=== PATIENT | male | born 1990 | race African-American/Black ===

== ENCOUNTER 2018-10-26 08:37 | Emergency (ER) | payer OTHER ==
[2018-10-26 08:41] VITALS: BP 141/83; PULSE 89; RESP 18; TEMP 98
--- NOTE | 2018-10-26 08:51 | ED ---
General Adult HPI - General Chief complaint: Extremity Injury, Upper Stated complaint: Wrist/arm injury Time Seen by Provider: 10/26/18 08:44 Source: patient, RN notes reviewed Mode of arrival: ambulatory Limitations: no limitations - History of Present Illness Initial comments: Patient is a 28-year-old male presented to the emergency room today with a chief complaint of injury to the left forearm that occurred yesterday. He does admit that he was walking up some stairs when he slipped on the ice falling to the side. Does admit to abrasion over the left forearm. States he has tenderness is worried that it could be broken. Patient states tetanus is up-to- date. He states was no head injury no loss consciousness. States pain is worse with certain movements of the left forearm. He denies any other complaints. Patient denies any recent fever, chills, shortness of breath, chest pain, back pain, abdominal pain, nausea or vomiting, numbness or tingling, headaches or visual changes, or any other complaints. - Related Data Home Medications Medication Instructions Recorded Confirmed Naproxen Sodium [Aleve] 220 mg PO DAILY PRN 10/26/18 10/26/18 Allergies Allergy/AdvReac Type Severity Reaction Status Date / Time No Known Allergies Allergy Verified 10/26/18 09:11 Review of Systems ROS Statement: Those systems with pertinent positive or pertinent negative responses have been documented in the HPI. ROS Other: All systems not noted in ROS Statement are negative. Past Medical History Past Medical History: No Reported History History of Any Multi-Drug Resistant Organisms: None Reported Past Surgical History: No Surgical Hx Reported Past Anesthesia/Blood Transfusion Reactions: No Reported Reaction Additional Past Anesthesia/Blood Transfusion Reaction / Comment(s): states mother has PONV Past Psychological History: No Psychological Hx Reported Smoking Status: Current every day smoker Past Alcohol Use History: Occasional Past Drug Use History: None Reported General Exam - General Exam Comments Initial Comments: General: The patient is awake and alert, in no distress, and does not appear acutely ill. Neck: The neck is supple, there is no tenderness or JVD. Musculoskeletal: Patient has sufficient abrasion over the posterior aspect of the left forearm. There is swelling locally to this area locally tender on palpation. No tenderness down into the left wrist, hand. No tenderness to the left elbow. Radial pulse 2+. Sensations are intact. Neurological: A&O x 3. CN II-XII intact, There are no obvious motor or sensory deficits. Coordination appears grossly intact. Speech is normal. Skin: Skin is warm and dry and no rashes or lesions are noted. Psychiatric: Normal mood and affect. Limitations: no limitations Course Vital Signs 10/26/18 08:39 Temperature 98.0 F Pulse Rate 89 Respiratory 18 Rate Blood Pressure 141/83 O2 Sat by Pulse 100 Oximetry Medical Decision Making - Medical Decision Making Patient's x-ray reviewed and does show a mid shaft fracture of the left radius with displacement approximately 50%. Case was discussed with orthopedic physician observation assistant Maverick Ribera who recommends sugar tong splint and following up in the office. Patient splinted in a sugar tong splint here in the emergency room. Neurovascular rechecked and intact. Patient will be discharged to follow-up with orthopedics. Disposition Clinical Impression: Fracture of radius, left, closed Disposition: HOME SELF-CARE Condition: Good Instructions (If sedation given, give patient instructions): Arm Fracture in Adults (ED) Additional Instructions: Please see splinted in place until follow-up appointment with orthopedics over the next 2 days. Please continue ice elevate the affected area. Return to the emergency room for any other concerns. Is patient prescribed a controlled substance at d/c from ED?: No Referrals: Kita Torres MD [Primary Care Provider] - 1-2 days Sha Gilman MD [STAFF PHYSICIAN] - 1-2 days Time of Disposition: 09:36
--- NOTE | 2018-10-26 09:09 | XR ---
EXAMINATION TYPE: XR forearm LT DATE OF EXAM: 10/26/2018 CLINICAL HISTORY: Left arm pain after fall TECHNIQUE: Two views of the left forearm are obtained. COMPARISON: None. FINDINGS: There is a transversely oriented noncomminuted minimally displaced fracture of the mid to d istal diaphysis of the ulna. There is displacement 7 mm posteriorly of the distal fracture fragment a nd 4 mm medially. Overlying soft tissue swelling is seen. No additional fracture is noted. IMPRESSION: Acute transversely oriented noncomminuted minimally displaced fracture of the mid to dist al diaphysis of the ulna.
== END 2018-10-26 10:31 | disposition home or self-care (01) ==
LOC: EC 08:37
DX: S52.222A Displaced transverse fracture of shaft of left ulna, initial encounter for closed fracture (principal); F17.200 Nicotine dependence, unspecified, uncomplicated; W00.0XXA Fall on same level due to ice and snow, initial encounter; Y93.01 Activity, walking, marching and hiking
CPT/HCPCS: 29125; 99283